=== PATIENT | male | born 2000 | race Caucasian/White ===

== ENCOUNTER 2023-01-13 21:03 | Emergency (ER) | payer MEDICAID ==
[~2023-01-13] VITALS: Ht 172.7 cm; Wt 86.4 kg
[2023-01-13 21:18] VITALS: RESP 16
[2023-01-13] MEDS ORDERED: CefTRIAXone 1000mg IM Kit (w/lidocaine diluent) IM STA (23:02)
[2023-01-13] MEDS ORDERED: DOXYCYCLINE 100MG CAPSULE PO ONE (23:05)
[2023-01-13] MEDS ORDERED: penicillin G benzathine 1.2 million unit/2ml syringe IM ONE (23:05)
[2023-01-13 23:32] LABS: BASOPHILS % (AUTO) 0.6 % (0-1); EOSINOPHILS % (AUTO) 0.1 % (0-6); HEMATOCRIT 40.8 % (42.0-52.0); HEMOGLOBIN 14.1 g/dl (14.0-17.9); LYMPHOCYTES # (AUTO) 2.9 X10'3 (1.1-4.8); LYMPHOCYTES % (AUTO) 46.4 % (21-51); MEAN CORPUSCULAR HEMOGLOBIN 30.3 PG (27.0-31.0); MEAN CORPUSCULAR HGB CONC 34.5 g/dL (33.0-36.5); MEAN CORPUSCULAR VOLUME 87.9 FL (78-98); MEAN PLATELET VOLUME 6.7 FL (7.4-10.4); MONOCYTES # (AUTO) 0.8 X10'3 (0-0.9); MONOCYTES % (AUTO) 11.9 % (2-12); NEUTROPHILS # (AUTO) 2.6 X10'3 (1.8-7.7); PLATELET COUNT 206 X10'3 (140-440); RED BLOOD COUNT 4.64 X10'6 (4.70-6.10); RED CELL DISTRIBUTION WIDTH 13.2 % (11.5-14.5); WHITE BLOOD COUNT 6.3 X10'3 (4.5-11.0)
[2023-01-13 23:44] LABS: ALANINE AMINOTRANSFERASE 42 U/L (12-78); ALBUMIN 3.9 G/DL (3.4-5.0); ALBUMIN/GLOBULIN RATIO 1.1 (1.1-1.5); ALKALINE PHOSPHATASE 102 IU/L (46-116); ANION GAP 5 (8-16); ASPARTATE AMINO TRANSFERASE 21 U/L (10-37); BILIRUBIN,TOTAL 0.3 MG/DL (0.1-1.0); BLOOD UREA NITROGEN 9 MG/DL (7-18); BUN/CREATININE RATIO 9.9 (10.0-20.0); CHLORIDE 103 MMOL/L (99-107); CREATININE 0.91 MG/DL (0.60-1.10); GLUCOSE 113 MG/DL (70-104); LIPASE 21 U/L (16-77); POTASSIUM 3.7 MMOL/L (3.5-5.1); SODIUM 138 MMOL/L (135-145); TOTAL CARBON DIOXIDE 30.2 MMOL/L (24-32); TOTAL PROTEIN 7.5 G/DL (6.4-8.2); eCRCL 122 ML/MIN; eGFR > 90 ML/MIN
[2023-01-14] MEDS ORDERED: DOXY-356 PO (00:04)
[2023-01-14 00:18] LABS: SYPHILIS SCREENING TEST POC NEGATIVE (Negative)
[2023-01-14 01:01] VITALS: BP 111/69; PULSE 100; TEMP 99.5; O2SAT 98
== END 2023-01-14 01:03 | disposition home or self-care (01) ==
LOC: ER 21:06
DX: K92.0 Hematemesis (principal)
CPT/HCPCS: 36415; 80053; 83690; 85025; 86592; 96372; 99283; J0696